=== PATIENT | female | born 1960 | race Caucasian/White ===

== ENCOUNTER 2018-08-08 09:04 | Emergency (ER) | payer BC ==
[~2018-08-08] VITALS: Ht 165.1 cm; Wt 154.2 kg
[~2018-08-08 09:04] MED LIST: CELEXA40 MG PO; FISH OIL 1,001000 M2; GLUCOPHAGE1000 MG PO; GLYBURIDE 3 MG M3 MG PO; IBUPROFEN 600600 M1 PO; LASIX 20 MG TAB20 MG; LEVEMIR100 UNIT/1; LEVOTHYROXINE0.2 M1 PO; MOBIC15 MG PO; NORCO 5-325 TA1 EACH PO; NOVOLOG100 UNIT/M; ONDANSETRON HCL4 M2 PO; OXYCODONE-ACET1 EACH PO; PERCOCET 5-3251 EACH PO; QUINU10 PD PO; SYNTHROID25 MCG PO; TRAMADOL 50 MG50 MG PO; VICTOZA0.6 MG/0.1 SUBQ
[2018-08-08 10:40] LABS: HEMATOCRIT 38.1 % (37.0-47.0); HEMOGLOBIN 12.5 gm/dL (12.0-15.0); MCH 28.6 pg (26.0-34.0); MCHC 32.8 g/dL (28.0-37.0); MCV 87.1 fL (80.0-100.0); PLATELET COUNT 204 thou/uL (150-400); RBC 4.37 mil/uL (4.20-5.00); RDW 14.5 % (10.5-14.5); WBC 5.7 thou/uL (4.0-11.0)
[2018-08-08 10:43] LABS: CALCIUM 8.9 mg/dL (8.5-10.1); CREATININE 0.9 mg/dL (0.6-1.0); POTASSIUM 4.1 mmol/L (3.5-5.1)
[2018-08-08] MEDS ORDERED: ZOFRAN ODT4 MG PO (10:47)
[2018-08-08 11:04] LABS: ABSOLUTE NEUTROPHILS 3.8 thou/uL (1.4-8.2); PLATELET ESTIMATE NORMAL
[2018-08-08 11:10] VITALS: BP 108/52
== END 2018-08-08 11:20 | disposition home or self-care (01) ==
LOC: ER 09:04
PROVIDERS: Emergency Medicine
DX: J10.1 Influenza due to other identified influenza virus with other respiratory manifestations (principal); E03.9 Hypothyroidism, unspecified; E11.9 Type 2 diabetes mellitus without complications; E66.01 Morbid (severe) obesity due to excess calories; Z68.43 Body mass index [BMI] 50.0-59.9, adult; G89.29 Other chronic pain; Z79.4 Long term (current) use of insulin; Z79.899 Other long term (current) drug therapy

== ENCOUNTER 2018-08-11 15:28 | Emergency (ER) | payer BC ==
[~2018-08-11] VITALS: Ht 167.6 cm; Wt 163.3 kg
[~2018-08-11 15:28] MED LIST changes: +ZOFRAN ODT4 MG PO
[2018-08-11] MEDS ORDERED: OSELB75 PO (17:13)
[2018-08-11 18:09] VITALS: BP 129/80
== END 2018-08-11 17:15 | disposition home or self-care (01) ==
LOC: ER 15:28
DX: J10.1 Influenza due to other identified influenza virus with other respiratory manifestations (principal); E03.9 Hypothyroidism, unspecified; F32.9 Major depressive disorder, single episode, unspecified; E66.01 Morbid (severe) obesity due to excess calories; E11.9 Type 2 diabetes mellitus without complications; Z68.43 Body mass index [BMI] 50.0-59.9, adult; Z79.4 Long term (current) use of insulin

== ENCOUNTER 2019-04-17 16:22 | Emergency (ER) | payer BC ==
[~2019-04-17] VITALS: Ht 167.6 cm; Wt 154.2 kg
[~2019-04-17 16:22] MED LIST changes: +OSELB75 PO
[2019-04-17 16:24] VITALS: BP 140/85
[2019-04-17] MEDS ORDERED: NORCO 5-325 TA1 EAC1 PO (17:16)
== END 2019-04-17 17:23 | disposition home or self-care (01) ==
LOC: ER 16:22
DX: S92.354A Nondisplaced fracture of fifth metatarsal bone, right foot, initial encounter for closed fracture (principal); M79.671 Pain in right foot; E03.9 Hypothyroidism, unspecified; F32.9 Major depressive disorder, single episode, unspecified; E66.01 Morbid (severe) obesity due to excess calories; E11.9 Type 2 diabetes mellitus without complications; M54.9 Dorsalgia, unspecified; G89.29 Other chronic pain; W01.0XXA Fall on same level from slipping, tripping and stumbling without subsequent striking against object, initial encounter; Y93.89 Activity, other specified; Y92.89 Other specified places as the place of occurrence of the external cause; Y99.8 Other external cause status

== ENCOUNTER → 2019-07-04 | Outpatient (CLI) | payer BC ==
[~2019-07-04] MED LIST changes: +NORCO 5-325 TA1 EAC1 PO
== END ==
LOC: ULTRA 11:01
DX: M79.604 Pain in right leg (principal); E11.9 Type 2 diabetes mellitus without complications; G62.9 Polyneuropathy, unspecified; Z79.4 Long term (current) use of insulin

== ENCOUNTER → 2019-09-08 | Outpatient (CLI) | payer BC | LOC: RAD 10:06 | DX: M47.816 Spondylosis without myelopathy or radiculopathy, lumbar region (principal); M12.88 Other specific arthropathies, not elsewhere classified, other specified site; I70.0 Atherosclerosis of aorta ==

== ENCOUNTER → 2019-10-06 | Outpatient (CLI) | payer BC ==
[~2019-10-06] VITALS: Ht 165.1 cm; Wt 158.8 kg
[~2019-10-06] MED LIST changes: +ASPIR 8181 M1 PO; +MELOXICAM15 MG PO; +NEURONTIN300 MG PO; +TRULICITY0.75 MG/0. SUBQ; +VITAMIN D31250 MCG PO; +WELLBUTRIN XL300 MG PO; +ZOCOR40 MG PO
[2019-10-06 09:10] VITALS: BP 152/90
--- NOTE | 2019-10-06 09:27 | NUR ---
Pain Clinic Assessment: 1. History of Osteoarthritis: Left Lower Extremity Right Lower Extremity Right Upper Extremity Left Upper Extremity BACK History of Rheumatoid Arthritis: Not Applicable 2. Height: 5 ft. 5 in. 165.1 cm. Weight: 350.0 lb. oz. 158.760 kg. Patient's BMI: 58.2 3. Vital Signs: BP: 152/90 Pulse: 85 Resp: 20 Temp: 02 Sat: 97 ECG Mon: 4. Pain Intensity: 8 5. Fall Risk: Dizziness: Y Needs help standing or walking: N Fallen in the last 3 months: Y Fall risk comments: 6. Patient on Blood Thinner: None 7. History of Hypertension: Y 8. Opioid Therapy greater than 6 weeks: N Opiate Contract Signed: 9. Risk Assessment Tool Provided: LOW RISK 10. Functional Assessment Tool: 11. Recreational Drug Use: Never Drug Type: Tobacco Use: Current Every Day Smoker Tobacco Type: Cigarettes Amount or Packs/day: 1/2 How Many Years: 4 Alcohol Use: No Frequency: Quant:
--- NOTE | 2019-10-14 15:51 | HPC ---
[facility] [place] [address] PAIN MANAGEMENT CONSULTATION Name: ALEK CHRISTIAN Room #: REG MICHELA Colin.#: [id number] Admission: 10/06/19 Attend Phys: Femi Terry MD Discharge: Date of : 60 Report #: [id number] THIS REPORT FOR: cc: Clinton Cui MD, Rene P. MD Morgan,Femi Reyes MD ~ CC: Lexie Terry DATE OF SERVICE: 10/06/2019 CHIEF COMPLAINT: Severe pain, right knee. The patient is a pleasant 58-year-old who I am seeing today at the request of Dr. France. She has had severe pain in her right knee that has progressively worsened since July. She sustained an injury to her right foot in March and was placed in a walking boot cast. This created an antalgic gait and likely worsened her right knee pain. She is now finding it difficult to stand, sit, walk. Her only position of comfort is lying on her left side and she occasionally uses ice with benefit. She describes her pain as a continuous, shooting pain, intensity 7-8 on a 10-point scale. She says it is difficult to bend her knee and the pain radiates down into the calf. She has pain also in the popliteal fossa. MEDICATIONS: Metformin, citalopram, quinapril, fish oil, insulin, simvastatin, Wellbutrin, aspirin, Trulicity. ALLERGIES: None. PAST MEDICAL HISTORY: Type 2 diabetes, asthma, arthritis, morbid obesity. SOCIAL HISTORY: She is . She is a licensed practical nurse. She smokes one half of a pack of cigarettes and has done so for the last 4 years. She did quit for a short time, but restarted. PHYSICAL EXAMINATION: GENERAL: This is a 58-year-old morbidly obese female with a BMI of 58.2. VITAL SIGNS: Her blood pressure is 152/90, heart rate 85, respirations 20, O2 sat 97. Pupils equal, round, reactive to light. EOMs are intact. CHEST: Reveals bilateral expiratory wheezing in the upper lung dee. CARDIAC: Rhythm was regular. There was no murmur. MUSCULOSKELETAL: She has mild and minimal tenderness to the low back. She has restricted range of motion in all planes. Examination of the lower extremities reveals marked tenderness of the right knee. She has pain with flexion and extension. Lateral and medial stressing of the joint exacerb[place] [address] PAIN MANAGEMENT CONSULTATION Name: ALEK CHRISTIAN [id number]: 10/06/19 Attend Phys: Fmei Terry MD Discharge: Date of : 60 Report #: [id number] pain also palpable in the popliteal fossa. Deep tendon reflexes are absent in knees and ankles bilaterally. Sensation is normal. Straight leg raising is negative in sitting position rather than pain about the knee. IMPRESSION: Right knee pain. The patient was in a walking boot for several months. The altered gait, I believe caused some pain in her knee and she may benefit from a brace. She said she is unable to wear one at work. We talked about the use of ice. Nonsteroidal anti-inflammatory drugs may be helpful and she has them available. We discussed risks and benefits of an NSAID. I did not prescribe additional medicines at this time. She will discuss with Dr. France. A consult was sent to the [facility]. She will see the doctor there who managed her right ankle, foot injury. No injections are indicated at this time. She may be a candidate for knee injection. <ELECTRONICALLY SIGNED> By: Femi Terry MD 10/14/19 [id number] [id number] Femi Terry MD /nt
== END ==
LOC: PAIN 07:55
PROVIDERS: ATTEND Anesthesiology Pain Medicine
DX: M25.561 Pain in right knee (principal); E11.9 Type 2 diabetes mellitus without complications; J45.909 Unspecified asthma, uncomplicated; M19.90 Unspecified osteoarthritis, unspecified site; E66.01 Morbid (severe) obesity due to excess calories; F17.210 Nicotine dependence, cigarettes, uncomplicated

== ENCOUNTER → 2019-10-13 | Outpatient (CLI) | payer BC ==
[~2019-10-13] MED LIST changes: -LEVOTHYROXINE0.2 M1 PO; +SYNTHROID100 MC1 PO; +VITAMIN D PO; +[UNRECOGNIZED DRUG - OTHER]
--- NOTE | 2019-10-17 09:27 | SLE ---
[facility] [place] [address] POLYSOMNOGRAPHY STUDY Name: GINOALEK FAIRBANKS Room #: REG [facility]#: [id number] Admission: 10/13/19 Attend Phys: Wang Miller MD Discharge: Date of : 60 Report #: [id number] THIS REPORT FOR: //name// CC: Wang uCi DATE OF SERVICE: 10/13/2019 SLEEP STUDY REFERRING PHYSICIAN: MONA Kelley The patient is a 59-year-old who weighs 361 pounds with a BMI of 60.1. The patient's Deerfield score was 10. The patient underwent split night study performed at [facility]. During the night study, the patient spent 454 minutes in bed and slept for 323 minutes with a sleep efficiency of 71%. Sleep latency was 36 minutes with a REM latency of 258 minutes. Sleep architecture showed increased stage 1 and stage 2 sleep, absent slow wave and slightly reduced REM sleep, which was 13% of total sleep time. During the initial diagnostic portion of the study, the patient slept for 123 minutes. During that time, the patient had 1 obstructive apnea, 1 mixed apnea, no central apneas and 35 hypopneas. The patient's AHI was 18 per hour. REM sleep was not observed. Supine AHI of 18 per hour as well. EKG monitoring revealed an average heart rate of 80 beats per minute. No sustained arrhythmias observed. No clinically significant PLM seen. Nocturnal oximetry study revealed an average oxygen saturation of 89% with the lowest of 81%. Eighty eight minutes were spent in oxygen saturation less than 89%. The patient met the criteria for CPAP initiation. It was started at 8 cm water and titrated up to 16 cm water. At the final pressure, the patient slept for 62 minutes including 20 minutes of supine REM sleep. The patient's AHI was reduced to 0 per hour and oxygen saturations remained above 89%. The patient used a medium sized full face mask. IMPRESSION: 1. Moderate obstructive sleep apnea at an AHI of 18 per hour. Absence of REM [facility] [address] [place] [address] POLYSOMNOGRAPHY STUDY Name: ALEK CHRISTIAN Room #: REG [facility]#: [id number] Admission: 10/13/19 Attend Phys: Wang Miller MD Discharge: Date of : 60 Report #: [id number] sleep during diagnostic portion can underestimate the severity of sleep apnea. 2. Nocturnal hypoxia secondary to obstructive sleep apnea , but resolved with CPAP. 3. No clinically significant periodic limb movements. RECOMMENDATIONS: 1. CPAP at 16 cm water completely eliminated the patient's sleep apnea and should be used on a nightly basis. 2. Follow up in 4-6 weeks to assess compliance with CPAP and to document clinical improvement. 3. Weight loss is strongly advised. 4. Avoid [employer] depressants. 5. Cautioned regarding driving until symptoms of sleep apnea resolve with the use of CPAP. <ELECTRONICALLY SIGNED> By: Bruce De Guzman MD 10/17/19 0927 [id number] Bruce De Guzman MD /nt
== END ==
LOC: SLEEPLAB 10:40
PROVIDERS: ATTEND Internal Medicine Pulmonary Disease
DX: Z03.818 Encounter for observation for suspected exposure to other biological agents ruled out (principal); G47.33 Obstructive sleep apnea (adult) (pediatric)

== ENCOUNTER → 2019-10-27 | Outpatient (CLI) | payer BC ==
[~2019-10-27] MED LIST changes: +LEVOTHYROXINE0.2 M1 PO; -SYNTHROID100 MC1 PO; -VITAMIN D PO; -[UNRECOGNIZED DRUG - OTHER]
== END ==
LOC: SJCVCIMAG 09:42
PROVIDERS: ATTEND Internal Medicine
DX: I49.3 Ventricular premature depolarization (principal); I49.1 Atrial premature depolarization; I10 Essential (primary) hypertension; E11.9 Type 2 diabetes mellitus without complications; E66.9 Obesity, unspecified; F17.200 Nicotine dependence, unspecified, uncomplicated; Z79.4 Long term (current) use of insulin

== ENCOUNTER 2019-11-10 02:26 | Emergency (ER) | payer BC ==
[~2019-11-10] VITALS: Ht 165.1 cm; Wt 163.3 kg
[~2019-11-10 02:26] MED LIST changes: -LEVOTHYROXINE0.2 M1 PO; +SYNTHROID100 MC1 PO
[2019-11-10] MEDS ORDERED: [UNRECOGNIZED DRUG - OTHER] (02:48)
[2019-11-10] MEDS ORDERED: VITAMIN D PO (02:49)
[2019-11-10] MEDS ORDERED: PERCOCET 5-3251 EACH PO (03:16)
[2019-11-10 03:20] VITALS: BP 158/75
== END 2019-11-10 03:35 | disposition home or self-care (01) ==
LOC: ER 02:26
DX: G89.29 Other chronic pain (principal); M25.561 Pain in right knee; M17.0 Bilateral primary osteoarthritis of knee; F17.210 Nicotine dependence, cigarettes, uncomplicated; Z79.899 Other long term (current) drug therapy; Z79.4 Long term (current) use of insulin; Z79.82 Long term (current) use of aspirin

== ENCOUNTER → 2019-12-11 | Outpatient (CLI) | payer BC ==
[~2019-12-11] MED LIST changes: +VITAMIN D PO; +[UNRECOGNIZED DRUG - OTHER]
== END ==
LOC: LAB 08:00
PROVIDERS: ATTEND Internal Medicine Pulmonary Disease
DX: Z01.812 Encounter for preprocedural laboratory examination (principal); Z20.828 Contact with and (suspected) exposure to other viral communicable diseases